=== PATIENT | female | born 1950 ===

== ENCOUNTER 2017-10-21 17:00 | Emergency (ER) | payer OTHER ==
[~2017-10-21] VITALS: Ht 152.4 cm; Wt 70.3 kg
[2017-10-21] MEDS ORDERED: LANTUS SOL100 UNIT/1 (17:10)
[2017-10-21] MEDS ORDERED: JANUMET 50-1,01 EACH (17:10)
[2017-10-21] MEDS ORDERED: PROTONIX20 MG (17:10)
[2017-10-21] MEDS ORDERED: COZAAR50 MG (17:10)
[2017-10-21] MEDS ORDERED: GABAPENTIN 600 MG (17:11)
[2017-10-21] MEDS ORDERED: BENTYL10 MG/1 ML (17:11)
== END 2017-10-22 00:10 | disposition home or self-care (01) ==
LOC: ER 17:00
DX: N28.1 Cyst of kidney, acquired (principal)

== ENCOUNTER 2018-06-07 09:34 | Outpatient (CLI) | payer OTHER ==
[~2018-06-07 09:34] MED LIST: BENTYL10 MG/1 ML; COZAAR50 MG; GABAPENTIN 600 MG; JANUMET 50-1,01 EACH; LANTUS SOL100 UNIT/1; PROTONIX20 MG
== END 2018-06-07 10:19 | disposition home or self-care (01) ==
LOC: MAMO-SONO 09:34
DX: E03.8 Other specified hypothyroidism (principal); I10 Essential (primary) hypertension; Z12.31 Encounter for screening mammogram for malignant neoplasm of breast

== ENCOUNTER 2018-10-15 14:55 | Outpatient (CLI) | payer OTHER | END 2018-10-15 15:00 | disposition home or self-care (01) | LOC: MAMO-SONO 14:55 | DX: N60.11 Diffuse cystic mastopathy of right breast (principal); N60.12 Diffuse cystic mastopathy of left breast ==

== ENCOUNTER 2018-10-25 07:50 | Outpatient (CLI) | payer OTHER | END 2018-10-25 08:13 | disposition home or self-care (01) | LOC: LAB 07:50 | DX: E04.1 Nontoxic single thyroid nodule (principal); E08.00 Diabetes mellitus due to underlying condition with hyperosmolarity without nonketotic hyperglycemic-hyperosmolar coma (NKHHC); I10 Essential (primary) hypertension; E03.8 Other specified hypothyroidism ==

== ENCOUNTER 2018-11-14 08:37 | Outpatient (CLI) | payer OTHER | END 2018-11-14 08:59 | disposition home or self-care (01) | LOC: LAB 08:37 | DX: N20.0 Calculus of kidney (principal) ==

== ENCOUNTER 2018-11-15 07:27 | Outpatient (CLI) | payer OTHER | END 2018-11-15 07:36 | disposition home or self-care (01) | LOC: TOM 07:27 | DX: R10.9 Unspecified abdominal pain (principal); Z13.0 Encounter for screening for diseases of the blood and blood-forming organs and certain disorders involving the immune mechanism ==

== ENCOUNTER 2019-05-21 07:13 | Outpatient (CLI) | payer OTHER | END 2019-05-21 07:22 | disposition home or self-care (01) | LOC: SONOGRAMA 07:13 → MAMO-SONO 08:15 | DX: M75.101 Unspecified rotator cuff tear or rupture of right shoulder, not specified as traumatic (principal); M25.511 Pain in right shoulder ==

== ENCOUNTER 2019-07-25 07:22 | Outpatient (CLI) | payer OTHER | END 2019-07-25 08:00 | disposition home or self-care (01) | LOC: MRI 07:22 | DX: M54.5 Low back pain (principal); M25.561 Pain in right knee | CPT/HCPCS: 72148; 73718 ==

== ENCOUNTER 2019-08-19 06:51 | Outpatient (CLI) | payer OTHER | END 2019-08-19 07:09 | disposition home or self-care (01) | LOC: LAB 06:51 | DX: R07.89 Other chest pain (principal); D68.8 Other specified coagulation defects; E78.2 Mixed hyperlipidemia; N39.0 Urinary tract infection, site not specified ==

== ENCOUNTER 2019-11-28 08:32 | Outpatient (CLI) | payer OTHER | END 2019-11-28 08:43 | disposition home or self-care (01) | LOC: RAD 08:32 | DX: M25.511 Pain in right shoulder (principal); M25.512 Pain in left shoulder ==

== ENCOUNTER 2020-01-30 13:02 | Outpatient (CLI) | payer OTHER | END 2020-01-30 14:54 | disposition home or self-care (01) | LOC: NUCLEAR 13:02 | DX: M81.0 Age-related osteoporosis without current pathological fracture (principal) ==

== ENCOUNTER 2020-08-27 07:32 | Outpatient (CLI) | payer OTHER | END 2020-08-27 07:46 | disposition home or self-care (01) | LOC: SONOGRAMA 07:32 → MAMO-SONO 07:45 → SONOGRAMA 07:46 | DX: K76.0 Fatty (change of) liver, not elsewhere classified (principal); Q61.01 Congenital single renal cyst; N11.9 Chronic tubulo-interstitial nephritis, unspecified; R10.84 Generalized abdominal pain ==

== ENCOUNTER 2021-04-12 07:25 | Outpatient (CLI) | payer OTHER | END 2021-04-12 07:26 | disposition home or self-care (01) | LOC: NUCLEAR 07:25 | PROVIDERS: ATTEND Specialist | DX: E03.9 Hypothyroidism, unspecified (principal); I10 Essential (primary) hypertension ==

== ENCOUNTER 2021-12-15 07:19 | Outpatient (CLI) | payer OTHER | END 2021-12-15 07:32 | disposition home or self-care (01) | LOC: MAMO-SONO 07:19 | PROVIDERS: ATTEND Specialist | DX: Z12.13 Encounter for screening for malignant neoplasm of small intestine (principal); R30.0 Dysuria; E03.9 Hypothyroidism, unspecified; I10 Essential (primary) hypertension; E08.9 Diabetes mellitus due to underlying condition without complications ==

== ENCOUNTER 2022-02-09 07:40 | Outpatient (CLI) | payer OTHER | END 2022-02-09 07:42 | disposition home or self-care (01) | LOC: SONOGRAMA 07:40 | PROVIDERS: ATTEND Pathology Anatomic Pathology & Clinical Pathology | DX: E04.1 Nontoxic single thyroid nodule (principal) ==

== ENCOUNTER → 2022-12-04 | Outpatient (CLI) | payer OTHER | END | disposition home or self-care (01) | LOC: SONOGRAMA 07:17 | DX: N18.2 Chronic kidney disease, stage 2 (mild) (principal) ==

== ENCOUNTER 2023-08-17 07:10 | Outpatient (CLI) | payer OTHER | END 2023-08-17 07:52 | disposition home or self-care (01) | LOC: MAMO-SONO 07:10 | PROVIDERS: ATTEND Specialist | DX: E08.9 Diabetes mellitus due to underlying condition without complications (principal); E03.9 Hypothyroidism, unspecified; I10 Essential (primary) hypertension; R30.0 Dysuria; Z12.31 Encounter for screening mammogram for malignant neoplasm of breast ==

== ENCOUNTER → 2023-11-05 06:28 | Outpatient (CLI) | payer OTHER ==
[2023-11-05 07:56] LABS: HEMATOCRIT 37.3 % (36.0-45.00); HEMOGLOBIN 12.5 g/dL (12.0-15.00); MEAN CELL VOLUME 80.2 fL (80.00-100.00); MEAN CORPUSCULAR HEMOGLOBIN 26.8 pg (27.00-32.0); MEAN CORPUSCULAR HGB CONC 33.5 g/dl (32.0-36.0); PLATELET COUNT 355 K/uL (150-450); RED BLOOD COUNT 4.65 M/uL (4.00-6.00); RED CELL DISTRIBUTION WIDTH 15.5 % (11.5-14.5)
[2023-11-05 07:58] LABS: ERYTHROCYTE SEDIMENTATION RATE 13 mm/hr
[2023-11-05 09:25] LABS: BILIRUBIN TOTAL 0.3 mg/dL (0.3-1.2); CALCIUM 9.7 mg/dL (8.5-10.1); CHOL HDL RATIO 4.6 (0-5.0); CREATININE SERUM 1.02 mg/dL (0.55-1.02); GFR 53.42; GLOBULINA 4.3 G/DL (2.4-3.5); POTASSIUM 3.81 mEq/L (3.5-5.1); TOTAL PROTEIN 8.3 gm/dL (6.4-8.2); TSH 2.25 uIU/mL (0.358-3.74)
[2023-11-05 13:03] LABS: FOLIC ACID 15.09 ng/ml (4.78-20); VITAMIN D3 25 HYDROXY 52.23 ng/ml (30-120)
== END | disposition home or self-care (01) ==
LOC: LAB 06:28
DX: D64.9 Anemia, unspecified (principal); G93.41 Metabolic encephalopathy; E11.9 Type 2 diabetes mellitus without complications; E06.3 Autoimmune thyroiditis; E78.5 Hyperlipidemia, unspecified; E53.9 Vitamin B deficiency, unspecified; E55.9 Vitamin D deficiency, unspecified; E63.9 Nutritional deficiency, unspecified; A52.9 Late syphilis, unspecified; I67.7 Cerebral arteritis, not elsewhere classified; E72.11 Homocystinuria; G30.1 Alzheimer's disease with late onset; I67.82 Cerebral ischemia; C71.9 Malignant neoplasm of brain, unspecified; E51.9 Thiamine deficiency, unspecified; Z11.3 Encounter for screening for infections with a predominantly sexual mode of transmission; I82.90 Acute embolism and thrombosis of unspecified vein

== ENCOUNTER 2023-11-05 07:38 | Outpatient (CLI) | payer OTHER | END 2023-11-05 07:51 | disposition home or self-care (01) | LOC: MRI 07:38 | DX: G93.40 Encephalopathy, unspecified (principal); G43.809 Other migraine, not intractable, without status migrainosus; M54.50 Low back pain, unspecified; I10 Essential (primary) hypertension; N18.2 Chronic kidney disease, stage 2 (mild) | CPT/HCPCS: 70551 ==

== ENCOUNTER 2024-03-11 07:17 | Outpatient (CLI) | payer OTHER | END 2024-03-11 07:28 | disposition home or self-care (01) | LOC: TOM 07:17 | PROVIDERS: ATTEND Urology | DX: N39.0 Urinary tract infection, site not specified (principal) ==

== ENCOUNTER 2025-04-22 07:11 | Outpatient (CLI) | payer OTHER | END 2025-04-22 08:33 | disposition home or self-care (01) | LOC: MRI 07:11 | DX: M25.519 Pain in unspecified shoulder (principal); M25.50 Pain in unspecified joint; M79.10 Myalgia, unspecified site; D14.30 Benign neoplasm of unspecified bronchus and lung | CPT/HCPCS: 73221 ==